=== PATIENT | female | born 2000 | race Caucasian/White ===

== ENCOUNTER 2023-03-10 01:40 | Emergency (ER) | payer OTHER ==
[2023-03-10 01:49] VITALS: BP 90/60; PULSE 63; RESP 18; TEMP 97.9; BMI 21.1
== END 2023-03-10 02:46 | disposition left against medical advice (07) ==
LOC: JER 01:40
DX: R10.9 Unspecified abdominal pain (principal); R11.0 Nausea
CPT/HCPCS: 99281-25